=== PATIENT | male | born 1970 | race American Indian/Alaskan Native ===

== ENCOUNTER 2016-04-21 10:07 | Outpatient (CLI) | payer OTHER ==
[2016-04-21] MEDS ORDERED: NACL 0.9% 1000 ML 1,000 ML ONE (10:33)
--- NOTE | 2016-04-21 11:13 | Cat Scan Report ---
CT of the abdomen and pelvis with and without IV contrast. History: Hematuria. Findings: The liver, spleen, pancreas, and gallbladder appear normal. The adrenal glands are unremarkable. The kidneys are normal in size and configuration with no evidence of mass or hydronephrosis. On the precontrast study, no renal calcifications are identified. No ureteral calcifications or dilatation is seen. There are no pelvic masses or abnormal fluid collections. Images of the bladder reveal no significant findings. The prostate gland appears normal. The appendix is normal. Impression: Normal study.
== END 2016-04-21 10:08 | disposition home or self-care (01) ==
LOC: CT 10:07
PROVIDERS: ATTEND Urology
DX: R31.29 Other microscopic hematuria (principal)
CPT/HCPCS: 74178; J7030; Q9967